=== PATIENT | female | born 2000 | race African-American/Black ===

== ENCOUNTER 2019-10-28 16:02 | Emergency (ER) | payer BC, OTHER ==
[~2019-10-28] VITALS: Ht 165.1 cm; Wt 68.0 kg
[2019-10-28] MEDS ORDERED: LORAZEPAM 1 MG TABLET ONE (16:23)
[2019-10-28] MEDS ORDERED: LORAZEPAM 0.5 MG TABLET PO ONE (16:30)
--- NOTE | 2019-10-28 16:46 | NUR ---
Pt states feeling better, relaxing in bed, speaking on the phone.
--- NOTE | 2019-10-28 17:05 | NUR ---
Patient discharged to home in stable condition. Written and verbal after care instructions given. Patient verbalizes understanding of instructions. Stressed follow up or return to ER for worsening s/s.pt walks in steady gait. pt not driving.
[2019-10-28 17:06] VITALS: BP 121/61
== END 2019-10-28 17:07 | disposition home or self-care (01) ==
LOC: ER 16:02
DX: F41.0 Panic disorder [episodic paroxysmal anxiety] (principal); R00.2 Palpitations; R06.02 Shortness of breath
CPT/HCPCS: 93005; A4663

== ENCOUNTER 2019-11-10 20:11 | Emergency (ER) | payer OTHER ==
[~2019-11-10] VITALS: Ht 167.6 cm; Wt 77.1 kg
--- NOTE | 2019-11-10 20:35 | NUR ---
at bedside for MSE
[2019-11-10] MEDS ORDERED: AMOXICILLIN-CLAVUL 875-125MG TABLET ONE (20:43)
[2019-11-10] MEDS ORDERED: AMOXICILLIN-CLAVUL 875-125MG TABLET PO ONE (20:45)
--- NOTE | 2019-11-10 20:46 | NUR ---
right forearm pin point puncture wound noted due to dog bite site cleased with betadine and covered with a band aid took antibiotic with out trouble
--- NOTE | 2019-11-10 20:52 | NUR ---
Patient discharged to home in stable condition. Able to ambulate without trouble. No distress noted, no complaints of pain. Written and verbal after care instructions given. Patient verbalizes understanding of instructions. Stressed follow up or return to ER for worsening s/s.
[2019-11-10 20:54] VITALS: BP 105/66
== END 2019-11-10 20:54 | disposition home or self-care (01) ==
LOC: ER 20:11
DX: S51.831A Puncture wound without foreign body of right forearm, initial encounter (principal); W54.0XXA Bitten by dog, initial encounter; Y92.89 Other specified places as the place of occurrence of the external cause
CPT/HCPCS: A4663